=== PATIENT | female | born 1980 | race Caucasian/White ===

== ENCOUNTER 2016-10-05 15:20 | Inpatient (IN) | payer MEDICAID ==
[~2016-10-05] VITALS: Ht 157.5 cm; Wt 88.9 kg
[~2016-10-05 15:20] MED LIST: NOCURR
[2016-10-05] MEDS ORDERED: RINGERS SOLUTION,LACTATED 1,000 ML IV PRN (15:41)
[2016-10-05] MEDS ORDERED: CITRIC ACID/SODIUM CITRATE 30 ML SOLUTION UDCUP PO PRN (15:45)
[2016-10-05] MEDS ORDERED: AMPICILLIN SODIUM 2 GM/NS 100 ML IV ONE (15:45)
[2016-10-05] MEDS ORDERED: LABETALOL HCL 200 MG TABLET PO ONE (15:45)
[2016-10-05] MEDS ORDERED: BETAMETHASONE SOLUSPAN 6 MG/ML 5 ML VIAL IM SCH (15:45)
[2016-10-05] MEDS ORDERED: METOCLOPRAMIDE HCL 5 MG/ML 2 ML VIAL IVP PRN (15:45)
[2016-10-05] MEDS ORDERED: CALCIUM GLUCONATE 100 MG/ML 10 ML IVP PRN (15:45)
[2016-10-05] MEDS ORDERED: MAGNESIUM SULFATE 4 GM/WATER 100 ML IV ONE (15:45)
[2016-10-05] MEDS ORDERED: FentaNYL CITRATE-PF 100 MCG/2 ML VIAL IVP PRN (15:45)
[2016-10-05] MEDS: RINGERS SOLUTION,LACTATED 1,000 ML IV SCH ×2 (16:01→23:41)
[2016-10-05 16:07] VITALS: BP 139/63
[2016-10-05 16:20] LABS: BASOPHILS % (AUTO) 0.5 % (0.0-2.0); EOSINOPHILS % (AUTO) 0.4 % (1.0-6.0); HEMOGLOBIN 8.7 g/dL (12.0-16.0); LYMPHOCYTES # (AUTO) 1.5 K/uL (1.0-4.8); LYMPHOCYTES % (AUTO) 12.9 % (22.0-44.0); MEAN CORPUSCULAR HEMOGLOBIN 26.9 pg (26.0-34.0); MEAN CORPUSCULAR VOLUME 84 fL (80-100); MONOCYTES # (AUTO) 0.5 K/uL (0.1-1.0); MONOCYTES % (AUTO) 4.3 % (2.0-9.0); NEUTROPHILS # (AUTO) 9.7 K/uL (1.8-7.7); NEUTROPHILS % (AUTO) 81.9 % (40.0-70.0); RED BLOOD CELL COUNT(AUTO) 3.21 MIL/uL (4.00-5.20); RED CELL DISTRIBUTION WIDTH 16.9 % (11.5-14.5); WHITE BLOOD COUNT (AUTO) 11.9 K/uL (4.5-11.0)
[2016-10-05] MEDS: MAGNESIUM SULFATE 500 ML IV SCH (16:23)
[2016-10-05 16:47] LABS: APPEARANCE,URINE CLEAR (CLEAR); GLUCOSE, URINE (UA) NEGATIVE (NEGATIVE); KETONES,URINE NEGATIVE (NEGATIVE); LEUKOCYTE ESTERASE ,URINE NEGATIVE (NEGATIVE); OCCULT BLOOD,URINE NEGATIVE (NEGATIVE); PH,URINE 6.5 (5.0-8.0); PROTEIN,URINE NEGATIVE (NEGATIVE)
[2016-10-05 16:50] LABS: ADD UA MICROSCOPIC NO
[2016-10-05 16:58] LABS: ALANINE AMINOTRANSFERASE 16 U/L (12-78); ALBUMIN 2.4 g/dL (3.4-5.0); ANION GAP 11 mmol/L (8-16); ASPARTATE AMINOTRANSFERASE 16 U/L (15-37); BILIRUBIN,TOTAL 0.2 mg/dL (0.1-1.0); CALCIUM, TOTAL 7.9 mg/dL (8.8-10.5); CARBON DIOXIDE 21 mmol/L (22-29); CHLORIDE 105 mmol/L (98-107); CREATININE 0.99 mg/dL (0.60-1.30); GLOMERULAR FILTR. RATE CALC > 60 mL/min (>60); POTASSIUM 4.1 mmol/L (3.5-5.1); SODIUM SERUM 137 mmol/L (136-145); TOTAL PROTEIN, SERUM 6.6 g/dL (6.4-8.2); UREA NITROGEN, BLOOD 12 mg/dL (7-18); URIC ACID 6.8 mg/dL (2.6-7.2)
[2016-10-05] MEDS ORDERED: INFLUENZA VIRUS VACCINE QVS 2016-17 (3YR+)/PF 60 MCG/0.5 ML SYRINGE IM ONE (17:15)
[2016-10-05 17:32] LABS: RUBELLA SCREEN (IGG) IMMUNE (IMMUNE)
[2016-10-05] MEDS ORDERED: OXYTOCIN 30 UNITS/LACT RINGERS 500 ML IV PRN (18:14)
[2016-10-05] MEDS ORDERED: LIDOCAINE HCL/PF 2% 5 ML VIAL ONE ×2 (18:19→22:29)
[2016-10-05] MEDS ORDERED: OXYTOCIN 30 UNITS/LACT RINGERS 500 ML IV ONE (18:21)
[2016-10-05] MEDS ORDERED: FentaNYL/BUPIV 0.125%/NS/PF 200 ML ED ONE (18:21)
[2016-10-05] MEDS ORDERED: PROMETHAZINE HCL 25 MG/ML VIAL IM PRN (18:45)
[2016-10-05] MEDS ORDERED: DiphenhydrAMINE HCL 50 MG/ML VIAL IVP PRN (18:45)
[2016-10-05] MEDS ORDERED: FentaNYL/BUPIV 0.125%/NS/PF 200 ML ED PRN (18:45)
[2016-10-05] MEDS ORDERED: ONDANSETRON HCL 4 MG/2 ML VIAL IVP PRN (18:45)
[2016-10-05] MEDS ORDERED: NALBUPHINE HCL 10 MG/ML VIAL IVP PRN (18:45)
[2016-10-05] MEDS ORDERED: AMPICILLIN SODIUM 1 GM/NS 50 ML IV SCH (19:45)
[2016-10-05] MEDS: OXYGEN THERAPY IH SCH (20:00)
[2016-10-05] MEDS ORDERED: BUPIVACAINE HCL/PF 0.25% 10 ML VIAL ONE (22:29)
[2016-10-05] MEDS ORDERED: OXYTOCIN 20 UNITS in RINGERS SOLUTION,LACTATED 1,000 ML IV SCH (23:32)
[2016-10-05] MEDS ORDERED: OxyCODONE HCL/ACETAMINOPHEN 5-325 MG TABLET PO PRN (23:45)
[2016-10-05] MEDS ORDERED: BENZOCAINE 20%/MENTHOL 56 GM SPRAY CANISTER TP PRN (23:45)
[2016-10-05] MEDS ORDERED: GLYCERIN/WITCH HAZEL LEAF 40 PADS JAR TP PRN (23:45)
[2016-10-06] MEDS ORDERED: LABETALOL HCL 5 MG/ML 20 ML VIAL IVP ONE ×4 (00:45→10:15)
[2016-10-06] MEDS ORDERED: HydrALAZINE HCL 20 MG/ML VIAL IVP ONE (02:00)
[2016-10-06] MEDS: MAGNESIUM SULFATE 500 ML IV SCH ×2 (04:30→18:53)
[2016-10-06 05:34] LABS: EOSINOPHILS % (AUTO) 0 % (1.0-6.0); HEMOGLOBIN 8.8 g/dL (12.0-16.0); LYMPHOCYTES # (AUTO) 0.9 K/uL (1.0-4.8); LYMPHOCYTES % (AUTO) 5.5 % (22.0-44.0); MEAN CORPUSCULAR HEMOGLOBIN 27.1 pg (26.0-34.0); MEAN CORPUSCULAR HGB CONC 32.7 G/dL (31.0-37.0); MEAN CORPUSCULAR VOLUME 83 fL (80-100); MONOCYTES # (AUTO) 0.5 K/uL (0.1-1.0); MONOCYTES % (AUTO) 2.8 % (2.0-9.0); NEUTROPHILS # (AUTO) 15.8 K/uL (1.8-7.7); RED BLOOD CELL COUNT(AUTO) 3.25 MIL/uL (4.00-5.20); WHITE BLOOD COUNT (AUTO) 17.3 K/uL (4.5-11.0)
[2016-10-06 05:35] LABS: NEUTROPHILS % (AUTO) 91.7 % (40.0-70.0)
[2016-10-06 05:49] LABS: ALBUMIN 2.4 g/dL (3.4-5.0); BILIRUBIN,TOTAL 0.3 mg/dL (0.1-1.0); CALCIUM, TOTAL 7.4 mg/dL (8.8-10.5); CREATININE 1.09 mg/dL (0.60-1.30); POTASSIUM 4.4 mmol/L (3.5-5.1); TOTAL PROTEIN, SERUM 6.7 g/dL (6.4-8.2); URIC ACID 7.3 mg/dL (2.6-7.2)
[2016-10-06 06:09] LABS: RBC MORPHOLOGY COMMENT ABNORMAL RBC MORPH
[2016-10-06] MEDS: IBUPROFEN 800 MG TABLET PO PRN (06:25)
[2016-10-06] MEDS: OXYGEN THERAPY IH SCH ×2 (08:00→20:18)
[2016-10-06] MEDS ORDERED: LABETALOL HCL 200 MG TABLET PO SCH (09:00)
[2016-10-06 10:17] VITALS: BP 187/116
[2016-10-06] MEDS ORDERED: ALPRAZolam 0.25 MG TABLET PO ONE (12:15)
[2016-10-06] MEDS: LABETALOL HCL 200 MG TABLET PO SCH ×3 (14:00→20:18)
[2016-10-06] MEDS ORDERED: DiphenhydrAMINE HCL 50 MG/ML VIAL IVP ONE (22:30)
[2016-10-07] MEDS: OxyCODONE HCL/ACETAMINOPHEN 5-325 MG TABLET PO PRN ×2 (05:31→21:03)
[2016-10-07 06:15] LABS: BASOPHILS % (AUTO) 0.1 % (0.0-2.0); EOSINOPHILS % (AUTO) 0.6 % (1.0-6.0); LYMPHOCYTES # (AUTO) 1.6 K/uL (1.0-4.8); LYMPHOCYTES % (AUTO) 15.1 % (22.0-44.0); MEAN CORPUSCULAR HGB CONC 32.2 G/dL (31.0-37.0); MEAN CORPUSCULAR VOLUME 84 fL (80-100); MONOCYTES # (AUTO) 0.5 K/uL (0.1-1.0); NEUTROPHILS # (AUTO) 8.4 K/uL (1.8-7.7); NEUTROPHILS % (AUTO) 79.2 % (40.0-70.0); RED BLOOD CELL COUNT(AUTO) 2.97 MIL/uL (4.00-5.20); RED CELL DISTRIBUTION WIDTH 17.1 % (11.5-14.5); WHITE BLOOD COUNT (AUTO) 10.6 K/uL (4.5-11.0)
[2016-10-07 06:57] LABS: ALBUMIN 2.2 g/dL (3.4-5.0); BILIRUBIN,TOTAL 0.1 mg/dL (0.1-1.0); CALCIUM, TOTAL 7.3 mg/dL (8.8-10.5); CREATININE 1.11 mg/dL (0.60-1.30); POTASSIUM 4.2 mmol/L (3.5-5.1); TOTAL PROTEIN, SERUM 6.2 g/dL (6.4-8.2); URIC ACID 7.1 mg/dL (2.6-7.2)
[2016-10-07] MEDS: OXYGEN THERAPY IH SCH (08:00)
[2016-10-07] MEDS: SENNA/DOCUSATE SODIUM 187-50 MG TABLET PO PRN ×2 (08:37→21:16)
[2016-10-07] MEDS: LABETALOL HCL 200 MG TABLET PO SCH ×3 (08:37→21:03)
[2016-10-07 08:59] LABS: RBC MORPHOLOGY COMMENT ABNORMAL RBC MORPH
[2016-10-07 15:12] LABS: TREPONEMA PALLIDUM AB -TPPA Positive (Negative)
[2016-10-07] MEDS: FERROUS SULFATE 325 MG EC TABLET PO SCH (17:30)
[2016-10-07] MEDS: IBUPROFEN 800 MG TABLET PO PRN (17:33)
[2016-10-07] MEDS: MAGNESIUM HYDROXIDE SUSPENSION 30 ML UDCUP PO PRN (21:16)
[2016-10-08] MEDS: MAGNESIUM HYDROXIDE SUSPENSION 30 ML UDCUP PO PRN ×3 (08:19→21:06)
[2016-10-08] MEDS: LABETALOL HCL 200 MG TABLET PO SCH (08:20)
[2016-10-08] MEDS: FERROUS SULFATE 325 MG EC TABLET PO SCH ×2 (08:20→19:19)
[2016-10-08] MEDS ORDERED: LIDOCAINE HCL 1% 10 ML VIAL INJ ONE (14:30)
[2016-10-08] MEDS: LABETALOL HCL 100 MG TABLET PO SCH ×2 (14:57→23:30)
[2016-10-08] MEDS: IBUPROFEN 800 MG TABLET PO PRN ×2 (16:01→20:18)
[2016-10-08] MEDS: SENNA/DOCUSATE SODIUM 187-50 MG TABLET PO PRN (21:06)
[2016-10-09] MEDS: IBUPROFEN 800 MG TABLET PO PRN ×2 (06:29→12:13)
[2016-10-09 07:06] LABS: INR 0.9 (0.9-1.1); PROTHROMBIN TIME 9.8 SEC (9.4-11.6)
[2016-10-09] MEDS: LABETALOL HCL 100 MG TABLET PO SCH ×2 (07:42→15:40)
[2016-10-09] MEDS: FERROUS SULFATE 325 MG EC TABLET PO SCH ×2 (07:43→19:27)
[2016-10-09] MEDS: SENNA/DOCUSATE SODIUM 187-50 MG TABLET PO PRN ×2 (11:09→17:44)
[2016-10-09] MEDS: MAGNESIUM HYDROXIDE SUSPENSION 30 ML UDCUP PO PRN ×2 (11:09→17:44)
[2016-10-09 12:14] LABS: BASOPHILS % (AUTO) 0.7 % (0.0-2.0); HEMATOCRIT 27.4 % (36-46); LYMPHOCYTES # (AUTO) 1.5 K/uL (1.0-4.8); LYMPHOCYTES % (AUTO) 13.9 % (22.0-44.0); MEAN CORPUSCULAR HEMOGLOBIN 27.3 pg (26.0-34.0); MEAN CORPUSCULAR HGB CONC 32.8 G/dL (31.0-37.0); MEAN CORPUSCULAR VOLUME 83 fL (80-100); MONOCYTES # (AUTO) 0.5 K/uL (0.1-1.0); MONOCYTES % (AUTO) 4.3 % (2.0-9.0); NEUTROPHILS # (AUTO) 8.5 K/uL (1.8-7.7); NEUTROPHILS % (AUTO) 78.1 % (40.0-70.0); RED BLOOD CELL COUNT(AUTO) 3.29 MIL/uL (4.00-5.20); RED CELL DISTRIBUTION WIDTH 17.6 % (11.5-14.5); WHITE BLOOD COUNT (AUTO) 10.9 K/uL (4.5-11.0)
[2016-10-09 12:49] LABS: ALANINE AMINOTRANSFERASE 36 U/L (12-78); ALBUMIN 2.6 g/dL (3.4-5.0); ANION GAP 8 mmol/L (8-16); ASPARTATE AMINOTRANSFERASE 33 U/L (15-37); BILIRUBIN,TOTAL 0.3 mg/dL (0.1-1.0); CALCIUM, TOTAL 8.3 mg/dL (8.8-10.5); CARBON DIOXIDE 23 mmol/L (22-29); CHLORIDE 103 mmol/L (98-107); CREATININE 0.96 mg/dL (0.60-1.30); GLOMERULAR FILTR. RATE CALC > 60 mL/min (>60); POTASSIUM 4.4 mmol/L (3.5-5.1); SODIUM SERUM 134 mmol/L (136-145); UREA NITROGEN, BLOOD 13 mg/dL (7-18)
[2016-10-09 12:58] LABS: URIC ACID 5.8 mg/dL (2.6-7.2)
[2016-10-09 14:22] LABS: GLUCOSE, CSF 46 mg/dL (50-80); TOTAL PROTEIN, CSF 39 mg/dL (15-45)
[2016-10-09 14:41] LABS: APPEARANCE,URINE CLEAR (CLEAR); GLUCOSE, URINE (UA) NEGATIVE (NEGATIVE); KETONES,URINE NEGATIVE (NEGATIVE); LEUKOCYTE ESTERASE ,URINE NEGATIVE (NEGATIVE); OCCULT BLOOD,URINE MODERATE (NEGATIVE); PH,URINE 6.5 (5.0-8.0); PROTEIN,URINE NEGATIVE (NEGATIVE)
[2016-10-09 14:42] LABS: ADD UA MICROSCOPIC YES
[2016-10-09 14:45] LABS: SQUAMOUS EPITHELIAL CELL,UR Few /LPF (None Seen); WBC,URINE 0-2 /HPF (0-5)
[2016-10-09 15:31] LABS: APPEARANCE,CSF CLEAR (CLEAR); COLOR,CSF COLORLESS (COLORLESS)
[2016-10-09] MEDS: LABETALOL HCL 200 MG TABLET PO SCH ×2 (15:49→23:53)
[2016-10-09] MEDS: SODIUM CHLORIDE 0.9% 1,000 ML IV SCH (17:57)
[2016-10-09] MEDS: PENICILLIN G POTASSIUM 4 MILUNITS in DEXTROSE 5%-WATER 100 ML IV SCH ×2 (19:09→23:56)
[2016-10-09] MEDS: OxyCODONE HCL/ACETAMINOPHEN 5-325 MG TABLET PO PRN (22:52)
[2016-10-10] MEDS: PENICILLIN G POTASSIUM 4 MILUNITS in DEXTROSE 5%-WATER 100 ML IV SCH ×5 (04:07→20:01)
[2016-10-10] MEDS: IBUPROFEN 800 MG TABLET PO PRN ×2 (06:27→12:40)
[2016-10-10] MEDS: LABETALOL HCL 200 MG TABLET PO SCH ×2 (08:28→16:12)
[2016-10-10] MEDS: FERROUS SULFATE 325 MG EC TABLET PO SCH ×2 (08:28→17:04)
[2016-10-10] MEDS: MAGNESIUM HYDROXIDE SUSPENSION 30 ML UDCUP PO PRN ×2 (08:47→20:42)
[2016-10-10] MEDS: SENNA/DOCUSATE SODIUM 187-50 MG TABLET PO PRN ×2 (08:47→20:42)
[2016-10-10] MEDS ORDERED: LABETALOL HCL 100 MG TABLET PO ONE (12:30)
[2016-10-10] MEDS: SODIUM CHLORIDE 0.9% 1,000 ML IV SCH (16:12)
[2016-10-11] MEDS: LABETALOL HCL 200 MG TABLET PO SCH ×4 (00:18→23:55)
[2016-10-11] MEDS: PENICILLIN G POTASSIUM 4 MILUNITS in DEXTROSE 5%-WATER 100 ML IV SCH ×7 (00:18→23:55)
[2016-10-11] MEDS: OXYGEN THERAPY IH SCH (08:00)
[2016-10-11] MEDS: FERROUS SULFATE 325 MG EC TABLET PO SCH ×3 (08:00→22:32)
[2016-10-11] MEDS: SODIUM CHLORIDE 0.9% 1,000 ML IV SCH (08:25)
[2016-10-11] MEDS: SENNA/DOCUSATE SODIUM 187-50 MG TABLET PO PRN ×2 (08:26→21:00)
[2016-10-11] MEDS: MAGNESIUM HYDROXIDE SUSPENSION 30 ML UDCUP PO PRN ×2 (08:26→21:00)
[2016-10-11] MEDS: IBUPROFEN 800 MG TABLET PO PRN (13:04)
[2016-10-11 18:07] LABS: URIN CARBOXY-THC GC/MS CONFIRM 306 ng/mL (Cutoff=10)
[2016-10-12] MEDS: PENICILLIN G POTASSIUM 4 MILUNITS in DEXTROSE 5%-WATER 100 ML IV SCH ×5 (04:05→19:50)
[2016-10-12] MEDS: MAGNESIUM HYDROXIDE SUSPENSION 30 ML UDCUP PO PRN ×2 (07:58→20:50)
[2016-10-12] MEDS: SENNA/DOCUSATE SODIUM 187-50 MG TABLET PO PRN ×2 (07:59→20:50)
[2016-10-12] MEDS: FERROUS SULFATE 325 MG EC TABLET PO SCH ×2 (07:59→16:24)
[2016-10-12] MEDS: LABETALOL HCL 200 MG TABLET PO SCH ×2 (07:59→16:23)
[2016-10-12 12:29] LABS: CALCIUM, TOTAL 8.9 mg/dL (8.8-10.5); CREATININE 1.08 mg/dL (0.60-1.30); POTASSIUM 4.5 mmol/L (3.5-5.1)
[2016-10-12 12:35] LABS: ALBUMIN 2.9 g/dL (3.4-5.0); BILIRUBIN,TOTAL 0.3 mg/dL (0.1-1.0); TOTAL PROTEIN, SERUM 7.3 g/dL (6.4-8.2)
[2016-10-12] MEDS: OXYGEN THERAPY IH SCH (20:00)
[2016-10-13] MEDS: LABETALOL HCL 200 MG TABLET PO SCH ×3 (00:48→17:15)
[2016-10-13] MEDS: PENICILLIN G POTASSIUM 4 MILUNITS in DEXTROSE 5%-WATER 100 ML IV SCH ×5 (00:48→21:17)
[2016-10-13] MEDS: OXYGEN THERAPY IH SCH ×2 (08:00→20:00)
[2016-10-13] MEDS: FERROUS SULFATE 325 MG EC TABLET PO SCH ×2 (08:00→12:19)
[2016-10-13] MEDS: MAGNESIUM HYDROXIDE SUSPENSION 30 ML UDCUP PO PRN ×2 (12:19→20:41)
[2016-10-13] MEDS: SENNA/DOCUSATE SODIUM 187-50 MG TABLET PO PRN ×2 (12:19→20:41)
[2016-10-14] MEDS: LABETALOL HCL 200 MG TABLET PO SCH ×3 (01:42→17:33)
[2016-10-14] MEDS: PENICILLIN G POTASSIUM 4 MILUNITS in DEXTROSE 5%-WATER 100 ML IV SCH ×6 (01:42→22:32)
[2016-10-14] MEDS: OXYGEN THERAPY IH SCH ×2 (08:00→20:00)
[2016-10-14] MEDS: IBUPROFEN 800 MG TABLET PO PRN ×2 (09:17→17:34)
[2016-10-14] MEDS: FERROUS SULFATE 325 MG EC TABLET PO SCH (09:17)
[2016-10-14] MEDS: SENNA/DOCUSATE SODIUM 187-50 MG TABLET PO PRN (09:20)
[2016-10-14] MEDS: SODIUM CHLORIDE 0.9% 1,000 ML IV SCH (11:12)
[2016-10-14] MEDS: OxyCODONE HCL/ACETAMINOPHEN 5-325 MG TABLET PO PRN ×2 (12:58→17:33)
[2016-10-14] MEDS: LANOLIN 7 GM OINTMENT TP PRN (13:07)
[2016-10-15] MEDS: LABETALOL HCL 200 MG TABLET PO SCH ×3 (00:53→17:43)
[2016-10-15] MEDS: PENICILLIN G POTASSIUM 4 MILUNITS in DEXTROSE 5%-WATER 100 ML IV SCH ×6 (02:48→22:33)
[2016-10-15] MEDS: SENNA/DOCUSATE SODIUM 187-50 MG TABLET PO PRN ×2 (09:14→22:34)
[2016-10-15] MEDS: MAGNESIUM HYDROXIDE SUSPENSION 30 ML UDCUP PO PRN (09:14)
[2016-10-15] MEDS: FERROUS SULFATE 325 MG EC TABLET PO SCH ×2 (09:14→23:18)
[2016-10-15] MEDS: SODIUM CHLORIDE 0.9% 1,000 ML IV SCH (23:18)
[2016-10-16] MEDS: LABETALOL HCL 200 MG TABLET PO SCH ×3 (01:24→18:17)
[2016-10-16] MEDS: MAGNESIUM HYDROXIDE SUSPENSION 30 ML UDCUP PO PRN ×2 (02:32→09:53)
[2016-10-16] MEDS: PENICILLIN G POTASSIUM 4 MILUNITS in DEXTROSE 5%-WATER 100 ML IV SCH ×6 (02:48→21:44)
[2016-10-16] MEDS: SENNA/DOCUSATE SODIUM 187-50 MG TABLET PO PRN ×2 (09:51→21:44)
[2016-10-16] MEDS: FERROUS SULFATE 325 MG EC TABLET PO SCH ×2 (09:52→18:17)
[2016-10-17] MEDS: PENICILLIN G POTASSIUM 4 MILUNITS in DEXTROSE 5%-WATER 100 ML IV SCH ×6 (02:02→22:18)
[2016-10-17] MEDS: LABETALOL HCL 200 MG TABLET PO SCH ×3 (02:02→18:25)
[2016-10-17] MEDS: SODIUM CHLORIDE 0.9% 1,000 ML IV SCH (02:03)
[2016-10-17 06:05] LABS: BASOPHILS # (AUTO) 0.06 K/uL (0.00-0.20); BASOPHILS % (AUTO) 0.7 % (0.0-2.0); EOSINOPHILS # (AUTO) 0.37 K/uL (0.00-0.70); EOSINOPHILS % (AUTO) 4.24 % (1.0-6.0); HEMATOCRIT 31.6 % (36-46); HEMOGLOBIN 10.3 g/dL (12.0-16.0); LYMPHOCYTES # (AUTO) 2.6 K/uL (1.0-4.8); LYMPHOCYTES % (AUTO) 29.3 % (22.0-44.0); MEAN CORPUSCULAR HEMOGLOBIN 27.4 pg (26.0-34.0); MEAN CORPUSCULAR HGB CONC 32.7 G/dL (31.0-37.0); MEAN CORPUSCULAR VOLUME 84 fL (80-100); MONOCYTES # (AUTO) 0.7 K/uL (0.1-1.0); MONOCYTES % (AUTO) 7.3 % (2.0-9.0); NEUTROPHILS # (AUTO) 5.2 K/uL (1.8-7.7); NEUTROPHILS % (AUTO) 58.4 % (40.0-70.0); RED BLOOD CELL COUNT(AUTO) 3.77 MIL/uL (4.00-5.20); RED CELL DISTRIBUTION WIDTH 18.5 % (11.5-14.5); WHITE BLOOD COUNT (AUTO) 8.8 K/uL (4.5-11.0)
[2016-10-17 06:25] LABS: ALBUMIN 2.9 g/dL (3.4-5.0); BILIRUBIN,TOTAL 0.3 mg/dL (0.1-1.0); CREATININE 1.3 mg/dL (0.60-1.30); POTASSIUM 4.4 mmol/L (3.5-5.1); TOTAL PROTEIN, SERUM 7.2 g/dL (6.4-8.2)
[2016-10-17] MEDS ORDERED: PNEUMOCOCCAL VACCINE POLYVALENT 0.5 ML VIAL [PPSV23] IM ONE (07:15)
[2016-10-17] MEDS: FERROUS SULFATE 325 MG EC TABLET PO SCH ×2 (09:38→18:06)
[2016-10-17 10:08] LABS: RBC MORPHOLOGY COMMENT ABNORMAL RBC MORPH
[2016-10-17] MEDS ORDERED: RINGERS SOLUTION,LACTATED 1,000 ML IV ONE ×2 (15:30→16:30)
[2016-10-18] MEDS: LABETALOL HCL 200 MG TABLET PO SCH ×3 (02:00→18:03)
[2016-10-18] MEDS: PENICILLIN G POTASSIUM 4 MILUNITS in DEXTROSE 5%-WATER 100 ML IV SCH ×2 (02:04→05:50)
[2016-10-18 05:41] LABS: CALCIUM, TOTAL 8.6 mg/dL (8.8-10.5); CREATININE 1.44 mg/dL (0.60-1.30); POTASSIUM 4.4 mmol/L (3.5-5.1)
[2016-10-18] MEDS: PENICILLIN G POTASSIUM 2 MILUNITS in DEXTROSE 5%-WATER 50 ML IV SCH ×4 (10:25→22:04)
[2016-10-18] MEDS: SENNA/DOCUSATE SODIUM 187-50 MG TABLET PO PRN ×3 (12:14→20:43)
[2016-10-18] MEDS: FERROUS SULFATE 325 MG EC TABLET PO SCH ×2 (12:14→18:02)
[2016-10-18] MEDS ORDERED: SODIUM CHLORIDE 0.9% 1,000 ML IV ONE (13:45)
[2016-10-18 17:47] LABS: CALCIUM, TOTAL 8.7 mg/dL (8.8-10.5); CREATININE 1.32 mg/dL (0.60-1.30); POTASSIUM 4.2 mmol/L (3.5-5.1)
[2016-10-19] MEDS: LABETALOL HCL 200 MG TABLET PO SCH ×3 (01:58→18:17)
[2016-10-19] MEDS: PENICILLIN G POTASSIUM 2 MILUNITS in DEXTROSE 5%-WATER 50 ML IV SCH ×6 (01:59→21:45)
[2016-10-19] MEDS ORDERED: ACETAMINOPHEN 325 MG TABLET PO ONE (02:15)
[2016-10-19 06:23] LABS: CALCIUM, TOTAL 8.5 mg/dL (8.8-10.5); CREATININE 1.36 mg/dL (0.60-1.30); POTASSIUM 4.2 mmol/L (3.5-5.1)
[2016-10-19] MEDS: FERROUS SULFATE 325 MG EC TABLET PO SCH (10:05)
[2016-10-19] MEDS: SENNA/DOCUSATE SODIUM 187-50 MG TABLET PO PRN ×2 (10:09→21:45)
[2016-10-19] MEDS: SODIUM CHLORIDE 0.9% 1,000 ML IV SCH (10:11)
[2016-10-20] MEDS: LABETALOL HCL 200 MG TABLET PO SCH ×2 (02:09→18:15)
[2016-10-20] MEDS: PENICILLIN G POTASSIUM 2 MILUNITS in DEXTROSE 5%-WATER 50 ML IV SCH ×7 (02:10→22:10)
[2016-10-20] MEDS: SODIUM CHLORIDE 0.9% 1,000 ML IV SCH ×2 (05:51→22:09)
[2016-10-20 06:57] LABS: CALCIUM, TOTAL 8.8 mg/dL (8.8-10.5); CREATININE 1.5 mg/dL (0.60-1.30); POTASSIUM 4.2 mmol/L (3.5-5.1)
[2016-10-20 17:32] LABS: CALCIUM, TOTAL 8.5 mg/dL (8.8-10.5); CREATININE 1.25 mg/dL (0.60-1.30); POTASSIUM 4.3 mmol/L (3.5-5.1)
[2016-10-20] MEDS: FERROUS SULFATE 325 MG EC TABLET PO SCH (18:20)
[2016-10-21] MEDS: PENICILLIN G POTASSIUM 2 MILUNITS in DEXTROSE 5%-WATER 50 ML IV SCH ×6 (02:00→21:59)
[2016-10-21] MEDS: LABETALOL HCL 200 MG TABLET PO SCH ×3 (02:01→17:47)
[2016-10-21 06:20] LABS: CALCIUM, TOTAL 8.6 mg/dL (8.8-10.5); CREATININE 1.35 mg/dL (0.60-1.30); POTASSIUM 3.9 mmol/L (3.5-5.1)
[2016-10-21] MEDS: SENNA/DOCUSATE SODIUM 187-50 MG TABLET PO PRN (08:24)
[2016-10-21] MEDS: FERROUS SULFATE 325 MG EC TABLET PO SCH ×2 (08:24→17:47)
[2016-10-21] MEDS ORDERED: IBUPROFEN 800 MG TABLET PO PRN (11:00)
[2016-10-21] MEDS ORDERED: OxyCODONE HCL/ACETAMINOPHEN 5-325 MG TABLET PO PRN (11:00)
[2016-10-21] MEDS: OxyCODONE HCL/ACETAMINOPHEN 5-325 MG TABLET PO PRN (12:24)
[2016-10-21] MEDS: SODIUM CHLORIDE 0.9% 1,000 ML IV SCH (15:17)
[2016-10-21] MEDS: ACETAMINOPHEN 325 MG TABLET PO PRN (18:49)
[2016-10-22] MEDS: PENICILLIN G POTASSIUM 2 MILUNITS in DEXTROSE 5%-WATER 50 ML IV SCH ×6 (02:08→22:36)
[2016-10-22] MEDS: LABETALOL HCL 200 MG TABLET PO SCH ×3 (02:10→18:18)
[2016-10-22] MEDS: SODIUM CHLORIDE 0.9% 1,000 ML IV SCH (05:57)
[2016-10-22 06:54] LABS: CREATININE 1.38 mg/dL (0.60-1.30); POTASSIUM 4.1 mmol/L (3.5-5.1)
[2016-10-22] MEDS: FERROUS SULFATE 325 MG EC TABLET PO SCH ×2 (08:20→18:18)
[2016-10-22] MEDS: SENNA/DOCUSATE SODIUM 187-50 MG TABLET PO PRN (08:20)
[2016-10-22] MEDS: LANOLIN 7 GM OINTMENT TP PRN (10:26)
[2016-10-22] MEDS: OxyCODONE HCL/ACETAMINOPHEN 5-325 MG TABLET PO PRN (14:07)
[2016-10-23] MEDS: SODIUM CHLORIDE 0.9% 1,000 ML IV SCH (02:26)
[2016-10-23] MEDS: PENICILLIN G POTASSIUM 2 MILUNITS in DEXTROSE 5%-WATER 50 ML IV SCH ×4 (02:27→14:05)
[2016-10-23] MEDS: LABETALOL HCL 200 MG TABLET PO SCH ×2 (02:27→09:43)
[2016-10-23 06:19] LABS: CALCIUM, TOTAL 8.9 mg/dL (8.8-10.5); CREATININE 1.55 mg/dL (0.60-1.30); POTASSIUM 4.3 mmol/L (3.5-5.1)
[2016-10-23] MEDS: FERROUS SULFATE 325 MG EC TABLET PO SCH (09:42)
[2016-10-23] MEDS: ACETAMINOPHEN 325 MG TABLET PO PRN (14:08)
[2016-10-24] MEDS ORDERED: PENICILLIN G BENZATHINE LA 2,400,000 UNITS/4 ML SYRINGE IM ONE (09:00)
[2016-10-31] MEDS ORDERED: PENICILLIN G BENZATHINE LA 2,400,000 UNITS/4 ML SYRINGE IM ONE (09:00)
[2016-11-07] MEDS ORDERED: PENICILLIN G BENZATHINE LA 2,400,000 UNITS/4 ML SYRINGE IM ONE (09:00)
== END 2016-10-23 15:20 | disposition home or self-care (01) | DRG 560 ==
LOC: 4S 15:23 → PREOBSVTOIN 15:26 → 4S 10-09 21:35
PROVIDERS: ADMIT Obstetrics & Gynecology; ATTEND Obstetrics & Gynecology
PROC: 10E0XZZ Delivery of Products of Conception, External Approach (ICD-10-PCS; principal; 2016-10-05)
PROC: 3E0234Z Introduction of Serum, Toxoid and Vaccine into Muscle, Percutaneous Approach (ICD-10-PCS; 2016-10-06)
PROC: 05HC33Z Insertion of Infusion Device into Left Basilic Vein, Percutaneous Approach (ICD-10-PCS; 2016-10-10)
PROC: 009U3ZX Drainage of Spinal Canal, Percutaneous Approach, Diagnostic (ICD-10-PCS; 2016-10-11)
PROC: 3E0234Z Introduction of Serum, Toxoid and Vaccine into Muscle, Percutaneous Approach (ICD-10-PCS; 2016-10-23)
DX: O98.12 Syphilis complicating childbirth (principal); O90.4 Postpartum acute kidney failure; O85 Puerperal sepsis; A52.3 Neurosyphilis, unspecified; O60.14X0 Preterm labor third trimester with preterm delivery third trimester, not applicable or unspecified; A52.71 Late syphilitic oculopathy; O99.324 Drug use complicating childbirth; O13.4 Gestational [pregnancy-induced] hypertension without significant proteinuria, complicating childbirth; F12.90 Cannabis use, unspecified, uncomplicated; O99.02 Anemia complicating childbirth; D64.9 Anemia, unspecified; Z3A.35 35 weeks gestation of pregnancy; Z37.0 Single live birth; O09.523 Supervision of elderly multigravida, third trimester; Z23 Encounter for immunization
CPT/HCPCS: 76700; 80307; 80349; 82945; 83735; 84157; 84550; 86592; 86593; 86762; 86780; 86787; 86850; 86900; 86901; 87070; 87205; 87340; 89050; 89051; 90471; J0290; J0360; J0561; J1200; J2405; J2540; J2590; J3010; J3475; J3490; J7030; J7060; J7120